=== PATIENT | female | born 1970 | race Caucasian/White ===

== ENCOUNTER 2016-08-18 06:05 | Emergency (ER) | payer BC ==
[2016-08-18 07:06] VITALS: BP 160/74
== END 2016-08-18 07:06 | disposition home or self-care (01) ==
LOC: ED 06:05
DX: J06.9 Acute upper respiratory infection, unspecified (principal); R03.0 Elevated blood-pressure reading, without diagnosis of hypertension; J02.9 Acute pharyngitis, unspecified; E11.9 Type 2 diabetes mellitus without complications; I10 Essential (primary) hypertension; Z79.84 Long term (current) use of oral hypoglycemic drugs; Z88.8 Allergy status to other drugs, medicaments and biological substances

== ENCOUNTER 2016-09-15 22:16 | Inpatient (IN) | payer BC ==
[~2016-09-15] VITALS: Ht 157.5 cm; Wt 76.2 kg
[2016-09-15 23:31] LABS: BASOPHIL % 0.3 % (0-2); PLATELET COUNT 168 x10^3mcL (130-400)
[2016-09-15 23:39] LABS: CALCIUM 8.5 mg/dL (8.5-10.1); CARBON DIOXIDE 26.2 mmol/L (21-32); CHLORIDE SERUM 102 mmol/L (98-107); CREATININE SERUM 0.9 mg/dL (0.6-1.0); GFR1 > 60 mL/min; GLUCOSE SERUM 353 mg/dL (74-106); POTASSIUM SERUM 3.6 mmol/L (3.5-5.1); SODIUM SERUM 137 mmol/L (136-145)
[2016-09-15 23:46] LABS: ALBUMIN 3.6 g/dL (3.4-5.0); ALKALINE PHOSPHATASE 142 U/L (46-116); ALT/SGPT 69 U/L (14-59); AST/SGOT 48 U/L (15-37); BILIRUBIN TOTAL 0.7 mg/dL (0.20-1.00); TOTAL PROTEIN, SERUM 7.5 g/dL (6.4-8.2)
[2016-09-16] MEDS ORDERED: HCTZ/LISINOPRIL1 TA1 PO (02:28)
[2016-09-16] MEDS ORDERED: METFORMIN HCL850 MG PO (02:28)
[2016-09-16 04:09] VITALS: BP 150/86
[2016-09-16 04:36] LABS: T3 TOTAL 0.97 ng/mL
[2016-09-16 04:48] LABS: CHOLESTEROL/HDL RATIO 3.1; MAGNESIUM 1.7 mg/dL (1.8-2.4); PHOSPHOROUS 2.5 mg/dL (2.5-4.9)
[2016-09-16 04:50] LABS: FREE T4 1.2 ng/dL (0.76-1.46); FREE THYROXINE INDEX 3.3 ug/dL (1.4-4.5); T4(THYROXINE) 9.6 ug/dL (4.7-13.3)
[2016-09-16 10:00] VITALS: BP 111/54
[2016-09-16 14:00] VITALS: BP 119/69
[2016-09-16 17:29] LABS: microscopic required? NO
[2016-09-16 18:10] VITALS: BP 124/73
[2016-09-16 19:03] LABS: urine erythrocyte NEGATIVE (NEGATIVE)
[2016-09-16 20:22] LABS: AMPHETAMINE QUAL UR NONE DETECTED (NEG <=1000)
[2016-09-16 22:42] VITALS: BP 131/68
[2016-09-17 06:04] LABS: BASOPHIL % 0.4 % (0-2); PLATELET COUNT 188 x10^3mcL (130-400); RED CELL DISTRIBUTION WIDTH 14.3 % (11.5-14.5)
[2016-09-17 06:09] VITALS: BP 145/77
[2016-09-17 06:26] LABS: CARBON DIOXIDE 23.6 mmol/L (21-32); CHLORIDE SERUM 107 mmol/L (98-107); CREATININE SERUM 0.8 mg/dL (0.6-1.0); GFR1 > 60 mL/min; GLUCOSE SERUM 181 mg/dL (74-106); MAGNESIUM 1.9 mg/dL (1.8-2.4); PHOSPHOROUS 2.5 mg/dL (2.5-4.9); POTASSIUM SERUM 4.1 mmol/L (3.5-5.1); SODIUM SERUM 139 mmol/L (136-145)
[2016-09-17 09:56] VITALS: BP 134/75
[2016-09-17] MEDS ORDERED: COZ25 PO (10:08)
[2016-09-17] MEDS ORDERED: MEDDP PO (10:14)
[2016-09-17] MEDS ORDERED: BENADRYL ALLERG25 M1 PO (10:14)
[2016-09-17] MEDS ORDERED: METOPROLOL TART25 M1 PO (10:15)
[2016-09-17] MEDS ORDERED: LANCET DEVICE1 EACH MC (10:35)
[2016-09-17] MEDS ORDERED: METFORMIN HCL1000 MG PO (10:35)
[2016-09-17] MEDS ORDERED: TEST STRIPS1 EACH MC (10:35)
[2016-09-17 14:06] VITALS: BP 134/75
== END 2016-09-17 16:06 | disposition home or self-care (01) | DRG 78 ==
LOC: ED 22:16 → DU 09-16 02:25
PROVIDERS: Emergency Medicine; Family Medicine; ADMIT Family Medicine
DX: I67.4 Hypertensive encephalopathy (principal); D68.69 Other thrombophilia; E11.65 Type 2 diabetes mellitus with hyperglycemia; E83.42 Hypomagnesemia; E66.9 Obesity, unspecified; I10 Essential (primary) hypertension; Z88.8 Allergy status to other drugs, medicaments and biological substances; Z68.30 Body mass index [BMI] 30.0-30.9, adult
CPT/HCPCS: 82962; 83880; 84439; J1200; J2405; J2550; J2920; J2930; J3490; J7030; Q0092

== ENCOUNTER 2019-05-09 17:21 | Emergency (ER) | payer BC ==
[~2019-05-09] VITALS: Ht 157.5 cm; Wt 66.7 kg
[~2019-05-09 17:21] MED LIST: BENADRYL ALLERG25 M1 PO; COZ25 PO; HCTZ/LISINOPRIL1 TA1 PO; LANCET DEVICE1 EACH MC; MEDDP PO; METFORMIN HCL1000 MG PO; METFORMIN HCL850 MG PO; METOPROLOL TART25 M1 PO; TEST STRIPS1 EACH MC
[2019-05-09 17:37] VITALS: Ht 157.5 cm; Wt 66.7 kg
[2019-05-09 20:14] VITALS: BP 138/105
== END 2019-05-09 20:14 | disposition home or self-care (01) ==
LOC: ED 17:21
DX: J18.9 Pneumonia, unspecified organism (principal); I10 Essential (primary) hypertension; E11.9 Type 2 diabetes mellitus without complications; Z88.8 Allergy status to other drugs, medicaments and biological substances
CPT/HCPCS: 87804; Q0162